=== PATIENT | female | born 1970 | race Caucasian/White ===

== ENCOUNTER 2018-05-08 16:36 | Emergency (ER) | payer OTHER ==
[~2018-05-08] VITALS: Wt 63.0 kg
[2018-05-08 16:46] VITALS: BP 129/65; PULSE 86; RESP 24
--- NOTE | 2018-05-08 17:35 | ERD ---
ER Documentation Chief Complaint Chief Complaint COUGH & ALVAREZ X 2 DAYS HPI 47-year-old nondiabetic female here with 2 days of dry cough that is worse at night and makes it difficult for her to sleep. She has not taken any medications for this. She has not had a fever. No nausea or vomiting. No body aches or chills. ROS All systems reviewed and are negative except as per history of present illness. Allergies Allergies: Coded Allergies: Penicillins (Verified Allergy, Unknown, 05/08/18) PMhx/Soc Medical and Surgical Hx: pt denies Medical Hx, pt denies Surgical Hx Hx Alcohol Use: No Hx Substance Use: No Hx Tobacco Use: No FmHx Family History: No diabetes Physical Exam Vitals Vital Signs Date Temp Pulse Resp B/P (MAP) Pulse Ox O2 O2 Flow FiO2 Time Delivery Rate 05/08/18 99.7 86 24 129/65 98 16:46 (86) Physical Exam INITIAL VITAL SIGNS: Reviewed by me GENERAL: Awake, alert and oriented x 4, well appearing, nontoxic, speaking in full sentences. No acute distress HEAD: Atraumatic NECK: Supple. No masses. Full range of motion. No meningismus. No midline tenderness. EYES: EOMI. PERRL. RESPIRATORY: Clear to auscultation bilaterally. Symmetric chest wall rise. No wheezing or rales. No accessory muscle use. CV: Regular rate and rhythm. No murmurs, rubs, or gallops. ABDOMEN: Soft, non-distended. Nontender. Negative [place]. Negative McBurneys point tenderness. No CVA tenderness bilaterally. No guarding. No rebound. Procedures/MDM Patient presents with cough for 2 days. She is afebrile and well-appearing. Her lungs are clear. I doubt she has pneumonia. discharged with cough syrup and prednisone course. Patient counseled regarding my diagnostic impression and care plan. Prior to discharge all questions answered. Pt agrees with treatment plan and understands strict return precautions. Pt is instructed to follow up with primary care provider within 24-48 hours. Precautionary instructions provided including instructions to return to the ER if not improving or for any worsening or changing symptoms or concerns. Departure Diagnosis: Primary Impression: Cough Condition: Stable NICOLE ARITA PA-C May 08, 2018 17:35
[2018-05-08] MEDS ORDERED: PROM5SYR2 PO (17:37)
[2018-05-08] MEDS ORDERED: PRED20TA PO (17:37)
== END 2018-05-08 17:46 | disposition home or self-care (01) ==
LOC: FTE 16:36
DX: R05 Cough (principal)
CPT/HCPCS: 99283